=== PATIENT | female | born 1980 | race Caucasian/White ===

== ENCOUNTER 2017-08-19 08:00 | Inpatient (IN) ==
[2017-08-19] MEDS ORDERED: Naloxone 0.4 MG/ML INJ IVP PRN ×2 (09:14→09:15)
[2017-08-19] MEDS ORDERED: Famotidine 20 MG/2 ML VIAL IVP PRN (09:14)
[2017-08-19] MEDS ORDERED: Metoclopramide 10 MG/2 ML VIAL IVP PRN (09:14)
[2017-08-19] MEDS ORDERED: Ringers Solution, Lactated 1,000 ML IVC SCH (09:15)
[2017-08-19] MEDS ORDERED: Oxytocin 20 units/ LR 1000 mL 20 UNIT/1,000 ML BAG IVC SCH ×2 (09:15→23:30)
[2017-08-19 09:28] LABS: Basophils % 0.6 %; Eosinophils # 0.1 K/mcL (0.0-0.6); Eosinophils % 1.5 %; Hematocrit 33.4 % (35.3-44.9); Immature Granulocytes % 0.3 % (0-4); Lymphocytes # 1.8 K/mcL (0.6-4.6); Lymphocytes % 28.4 %; Mean Corpuscular HGB Conc 32.9 g/dL (31.6-35.5); Mean Corpuscular Hemoglobin 29.3 pg (28.0-33.3); Mean Corpuscular Volume 89.1 fL (83.0-100.0); Mean Platelet Volume 10.6 fL (9.4-12.4); Monocytes # 0.5 K/mcL (0.0-1.3); Monocytes % 7.3 %; Neutrophils # 3.8 K/mcL (1.6-8.9); Platelet Count 189 K/mcL (140-400); Red Blood Count 3.75 M/mcL (3.82-4.97); Red Cell Distribution Width 13.1 % (11.5-14.5); Segmented Neutrophils % 61.9 %
[2017-08-19] MEDS ORDERED: Ringers Solution, Lactated 1,000 ML ONE (09:42)
[2017-08-19] MEDS ORDERED: Oxytocin 20 units/ LR 1000 mL 20 UNIT/1,000 ML BAG IVC ONE ×2 (09:42→23:30)
--- NOTE | 2017-08-19 09:52 | OB/GYN History & Physical ---
Date of Encounter: 08/19/17 Time of Encounter: 09:49 Assessment and Plan (1) 39 weeks gestation of Current visit: Yes Status: Acute (2) AMA (advanced maternal age) multigravida 35+ Current visit: Yes Status: Acute Qualifiers: Trimester: third trimester Qualified Code(s): O09.523 - Supervision of elderly multigravida, third trimester (3) History of shoulder dystocia in prior , currently Current visit: No Status: Acute Fundal heights appropriate. AGA at 34 weeks. Wei's 8.5 pounds with proven pelvis. History of Present Illness Chief complaint: induction of labor HPI: Ms. Oliveira is a 36 year old female G 3 P 2-0-0-2 at 39 3/7 weeks presents for induction of labor due to term with advanced maternal age. She denies any regular contractions, leaking fluid, or vaginal bleeding. She reports good movement. has been complicated by AMA and history of LGA with shoulder dystocia with her first . Past Med Surg Social Fam HX - Past Medical History Source: patient Medical history: kidney stones, other Psychiatric history: no psych history - Past Surgical History Surgical History: cholecystectomy, other (EGD) - Social History Smoking Status: Never smoker Smokeless Tobacco Status: No Alcohol use: none Drug use: none Occupational status: employed Current living situation: Home - Independent Activity Level: Independent ambulation Obstetrical History - Pregnancies : 3 Para: 2 Term: 2 Livin - History/Complications History/Complications: First baby LGA with shoulder dystocia and 4th degree laceration. Pre-eclampsia with first. Medications and Allergies Ferrous Sulfate 325 mg PO 08/19/17 [History] Vit Calc,Iron,Folic [ Vitamins] 1 each PO 08/19/17 [History] 3 Allergy/AdvReac Type Severity Reaction Status Date / Time morphine Allergy Severe Swelling Verified 08/19/17 09:56 of Lip/Tongue/Throat Review of System OB All systems PM: reviewed and no additional remarkable complaints except as stated Exam - Constitutional Constitutional: well developed, well nourished, no acute distress - HEENT HEENT: EOMI - Lungs Respiratory exam: CTAB - Cardiovascular Cardiovascular exam: RRR - Abdomen Abdomen: Present: bowel sounds normal, gravid, non tender - Cervix Dilation: 3 Effacement: 80 Station: -3 Results Result Diagrams: 08/19/17 09:18 Abnormal lab results RBC 3.75 M/mcL (3.82-4.97) L 08/19/17 09:18 Hgb 11.0 g/dL (11.5-15.4) L 08/19/17 09:18 Hct 33.4 % (35.3-44.9) L 08/19/17 09:18 All other labs normal. - VTE Reasons for not Prescribing Prophylaxis: Treatment not Indicated - Low risk for VTE
[2017-08-19 11:08] LABS: Amphetamine Screen,Urine Negative ng/mL (Cutoff=1000); Barbiturate Screen,Urine Negative ng/mL (Cutoff=200); Benzodiazepines Screen,Urine Negative ng/mL (Cutoff=200); Cannabinoid Screen,Urine Negative ng/mL (Cutoff = 50); Cocaine Screen,Urine Negative ng/mL (Cutoff= 300); Opiate Screen,Urine Negative ng/mL (Cutoff=300); Phencyclidine Screen,Urine Negative ng/mL (Cutoff=25)
--- NOTE | 2017-08-19 16:11 | OB Labor Progress Note ---
Date of Encounter: 08/19/17 Time of Encounter: 16:08 Labor Progress Note - Subjective Subjective: Patient is becoming more uncomfortable with contractions. She is requesting AROM to help speed up the process. - Cervix Cervix: 6/60/-3 - Heart Tones Heart Tones: 140, category 1, +scalp stim - Vesper Vesper: q 1-2 minutes - Interventions Interventions: AROM with clear fluid, small amount - Plan Plan: continue with pitocin induction
[2017-08-19] MEDS ORDERED: *HR* Nalbuphine 20 MG/ML AMPUL IVP PRN (17:22)
[2017-08-19] MEDS ORDERED: *HR* Nalbuphine 20 MG/ML AMPUL ONE (17:26)
[2017-08-19] MEDS ORDERED: *HR* Promethazine 25 MG/ML VIAL IVP ONE (19:06)
[2017-08-19] MEDS ORDERED: *HR* Promethazine 25 MG/ML VIAL ONE (19:06)
[2017-08-19] MEDS ORDERED: Lidocaine 1% 20 ML MDV ONE (19:23)
[2017-08-19] MEDS ORDERED: miSOPROStol 100 MCG TABLET PO STA (21:54)
[2017-08-19] MEDS ORDERED: Methylergonovine 0.2 MG/ML AMPUL IM ONE (21:54)
--- NOTE | 2017-08-19 21:59 | OB/GYN Procedure Note ---
Delivery - Delivery Date: 08/19/17 Provider: Gabriela Sparrow Intrapartum events: none Delivery induction: AROM, oxytocin Delivery monitor: external FHT, external uterine Anesthesia: local Estimated Blood Loss: 400 - (s) Infant A Infant Delivery Date: 08/19/17 Infant Delivery Time: 21:30 Presentation: vertex Position: ROGELIO Route of delivery: Gender: Female Viability: Viable Pounds: 9 Ounces: 3 Weight Gram: 4.165 kg at 1 minute: 9 at 5 mins: 10 Shoulder Dystocia: not encountered Specimens collected: cord blood Placenta: spontaneous Cord: nuchal cord, 3 umbilical vessels, delivered through nuchal - Repair Episiotomy: none Laceration Description: Perineal - 2nd Degree - Complications Delivery complications: none Delivery comments: Called to room with patient complete and +2 station. Under maternal effort she delivered a viable female weighing 9 lbs. 3 oz. and Apgars 9 and 10 at 1 and 5 minutes respectively over second-degree perineal laceration. Following delivery of the head there was a nuchal cord noted that she delivered through. There was no shoulder dystocia encountered. Infant delivered with maternal effort. Infant was placed on mom's abdomen. Cord was clamped and cut. Cord blood was collected. Placenta delivered spontaneously, complete, and intact with a three-vessel cord. Second-degree perineal laceration was repaired using 3 -0 Vicryl in standard fashion. Uterine atony was encountered that resolved with fundal massage, IV Pitocin, and IM Methergine. Mother and are recovering in the LDR in stable condition. - Disposition Mom disposition: stable in LDR disposition: stable in LDR
[2017-08-19] MEDS ORDERED: Ibuprofen 600 MG TABLET PO PRN (23:30)
[2017-08-19] MEDS ORDERED: Acetaminophen 325 MG TABLET PO PRN (23:30)
[2017-08-20 04:35] LABS: Basophils % 0.1 %; Hemoglobin 10.8 g/dL (11.5-15.4); Immature Granulocytes % 0.5 % (0-4); Lymphocytes # 1.3 K/mcL (0.6-4.6); Mean Corpuscular HGB Conc 33.8 g/dL (31.6-35.5); Mean Corpuscular Volume 88.9 fL (83.0-100.0); Mean Platelet Volume 11.1 fL (9.4-12.4); Monocytes % 6.3 %; Neutrophils # 13.3 K/mcL (1.6-8.9); Platelet Count 194 K/mcL (140-400); Segmented Neutrophils % 85.1 %
[2017-08-20 07:55] VITALS: BP 106/65
--- NOTE | 2017-08-20 08:24 | Discharge Summary ---
Date of Encounter: 08/20/17 Time of Encounter: 08:21 - Discharge Diagnosis (1) Vaginal delivery Priority: Primary Status: Acute Comments: Pt states feels well, with formula supplementation, pain well managed, lochia is decreasing, desires discharge (2) Mother currently breast-feeding Priority: Secondary Status: Acute - Discharge Medications Home Medications: Ferrous Sulfate 325 mg PO 08/19/17 [History] Vit Calc,Iron,Folic [ Vitamins] 1 each PO 08/19/17 [History] Docusate [Colace] 100 mg PO BID capsule 08/20/17 [Rx] Ferrous Sulfate 325 mg PO DAILY tablet 08/20/17 [Rx] Ibuprofen [Motrin] 600 mg PO Q6HR PRN tablet 08/20/17 [Rx] Vit/FA 1 each PO DAILY tablet 08/20/17 [Rx] Allergies/Adverse Reactions: 3 Allergy/AdvReac Type Severity Reaction Status Date / Time morphine Allergy Severe Swelling Verified 08/19/17 09:56 of Lip/Tongue/Throat Data Procedures and tests throughout hospitalization: Laboratory Tests 08/19/17 08/19/17 08/20/17 09:18 09:18 03:36 WBC 6.2 15.6 H D RBC 3.75 L 3.60 L Hgb 11.0 L 10.8 L Hct 33.4 L 32.0 L MCV 89.1 88.9 MCH 29.3 30.0 MCHC 32.9 33.8 RDW 13.1 13.0 Plt Count 189 194 MPV 10.6 11.1 Immature Gran % 0.3 0.5 Seg Neutrophils % 61.9 85.1 Lymphocytes % 28.4 8.0 Monocytes % 7.3 6.3 Eosinophils % 1.5 0.0 Basophils % 0.6 0.1 Neutrophils # 3.8 13.3 H Lymphocytes # 1.8 1.3 Monocytes # 0.5 1.0 Eosinophils # 0.1 0.0 Basophils # 0.0 0.0 Urine Opiates Screen Negative Ur Barbiturates Screen Negative Ur Phencyclidine Scrn Negative Ur Amphetamines Screen Negative U Benzodiazepines Scrn Negative Urine Cocaine Screen Negative U Marijuana (THC) Screen Negative Labs on day of discharge: Labs from last 24 hours 08/20/17 08/19/17 08/19/17 03:36 09:18 09:18 WBC 15.6 H D 6.2 RBC 3.60 L 3.75 L Hgb 10.8 L 11.0 L Hct 32.0 L 33.4 L MCV 88.9 89.1 MCH 30.0 29.3 MCHC 33.8 32.9 RDW 13.0 13.1 Plt Count 194 189 MPV 11.1 10.6 Immature Gran % 0.5 0.3 Seg Neutrophils % 85.1 61.9 Lymphocytes % 8.0 28.4 Monocytes % 6.3 7.3 Eosinophils % 0.0 1.5 Basophils % 0.1 0.6 Neutrophils # 13.3 H 3.8 Lymphocytes # 1.3 1.8 Monocytes # 1.0 0.5 Eosinophils # 0.0 0.1 Basophils # 0.0 0.0 Urine Opiates Screen Negative Ur Barbiturates Screen Negative Ur Phencyclidine Scrn Negative Ur Amphetamines Screen Negative U Benzodiazepines Scrn Negative Urine Cocaine Screen Negative U Marijuana (THC) Screen Negative Date of admission: 08/19/17 08:17 Primary care physician: Ramonita Robles MD Consults: 08/19/17 23:30 Consult to [employer] [CONS] Routine Comment: Vaginal delivery, consult needed Discharging clinician: Naomi Smith Anticipated date of discharge: 08/20/17 - Patient Status Disposition: Home, Self-Care Condition: Good Functional capacity at discharge: independent ambulation Overall status at discharge: patient is back to baseline - Discharge Instructions Follow Up With: Ramonita Robles MD [Primary Care Provider] - Gabriela Sparrow DO [Partnered Physician] - - Diet and Activity Activity: resume usual activities as tolerated Diet: regular diet Hospital Course Reason for admission: induction of labor Delivery: Episiotomy: none Laceration: 2nd degree Other procedures: none complications: none Discharge diagnosis: IUP at term delivered baby: female Hospital course: Delivery - Delivery Date: 08/19/17 Provider: Gabriela Sparrow Intrapartum events: none Delivery induction: AROM, oxytocin Delivery monitor: external FHT, external uterine Anesthesia: local Estimated Blood Loss: 400 - (s) A Delivery Date: 08/19/17 Infant Delivery Time: 21:30 Presentation: vertex Position: ROGELIO Route of delivery: Gender: Female Viability: Viable Pounds: 9 Ounces: 3 Weight Gram: 4.165 kg at 1 minute: 9 at 5 mins: 10 Shoulder Dystocia: not encountered Specimens collected: cord blood Placenta: spontaneous Cord: nuchal cord, 3 umbilical vessels, delivered through nuchal - Repair Episiotomy: none Laceration Description: Perineal - 2nd Degree - Complications Delivery complications: none Delivery comments: Called to room with patient complete and +2 station. Under maternal effort she delivered a viable female weighing 9 lbs. 3 oz. and Apgars 9 and 10 at 1 and 5 minutes respectively over second-degree perineal laceration. Following delivery of the head there was a nuchal cord noted that she delivered through. There was no shoulder dystocia encountered. Infant delivered with maternal effort. was placed on mom's abdomen. Cord was clamped and cut. Cord blood was collected. Placenta delivered spontaneously, complete, and intact with a three-vessel cord. Second-degree perineal laceration was repaired using 3 -0 Vicryl in standard fashion. Uterine atony was encountered that resolved with fundal massage, IV Pitocin, and IM Methergine. Mother and infant are recovering in the LDR in stable condition. - Disposition Mom disposition: stable in PP and appropriate for discharge. Time Attestation: Total time spent providing and/or coordinating discharge services: Time Spent: Less than 30 minutes Exam - Constitutional Vitals: Temp Pulse Resp BP Pulse Ox 98.1 F 90 16 106/65 97 08/20/17 07:54 08/20/17 07:54 08/20/17 07:54 08/20/17 07:54 08/20/17 03:01 General appearance IM: A&O X 3 - Respiratory Respiratory exam: Present: CTAB - Cardiovascular Cardiovascular exam IM: Present: RRR - GI/Abdominal GI/Abdominal exam IM: soft - Uterine Tone: Firm Uterus Position: At Umbilicus - Extremities Exam Extremities exam IM: Present: normal capillary refill, normal inspection - Neurological Exam Neurological exam: normal gait, oriented X3 - Psychiatric Additional comments: reports good mood.
[2017-08-20] MEDS ORDERED: Prenatal Vit/FA 1 EACH TABLET PO SCH (09:00)
[2017-08-20] MEDS ORDERED: Methylergonovine 0.2 MG/ML AMPUL IM ONE (23:02)
[2017-08-20] MEDS ORDERED: miSOPROStol 100 MCG TABLET PO ONE (23:02)
== END 2017-08-20 23:03 | disposition home or self-care (01) | DRG 775 ==
LOC: 1NENULAB 08:17 → 1NENUOBS 23:29
PROVIDERS: ADMIT Obstetrics & Gynecology; ATTEND Obstetrics & Gynecology